=== PATIENT | female | born 1990 | race Caucasian/White ===

== ENCOUNTER 2019-11-03 12:12 | Emergency (ER) | payer OTHER, SELFPAY ==
[2019-11-03 12:14] VITALS: BP 125/81; PULSE 86; RESP 18; TEMP 36.7; O2SAT 100; BMI 42.4
--- NOTE | 2019-11-03 12:49 | RAD_ITS ---
STUDY: X-RAY - RIGHT HAND REASON FOR EXAM: Female, 29 years old. LACERATION TO PALM OF HAND AND DIFFICULTY STRAIGHTENING 5TH DIGIT; BROKEN LIGHTBULB INJURY TECHNIQUE: 3 view(s) of the hand. COMPARISON: None. FINDINGS: Normal radiocarpal articulation. Normal distal radioulnar joint. Normal visualized carpal bones. Normal carpal articulations Normal carpometacarpal articulation of the thumb. Normal second through fifth carpometacarpal joints. Normal metacarpi. Normal metacarpophalangeal joint of the thumb. Normal interphalangeal joint of the thumb. Normal proximal and distal phalanges of the thumb. Normal metacarpophalangeal joints of the second through fifth fingers. Normal proximal and distal interphalangeal joints of the second through fifth fingers. Normal phalanges of the second through fifth fingers. The soft tissue structures are unremarkable. No radiopaque foreign body is seen. RAD/Hand Min 3 Views IMPRESSION: Normal x-ray examination of the hand. Electronically Signed: Lawrence Knox, at 13:06 EDT , Service support ,
--- NOTE | 2019-11-03 14:20 | ED.VISSUMM ---
- ER Visit Summary Date of Service: 11/03/19 Chief Complaint: [Laceration to right hand History of present illness: The patient is a 29-year-old female presents to the emergency department laceration to her right hand that occurred about an hour and a half ago. Patient states that her brother was changing a light bulb and took off the glass cover over the light bulb which broke causing a laceration to her hand. Patient is right-hand dominant. Patient complains of severe pain to the ulnar aspect of the hand. She complains of the small finger being abducted from the rest of the fingers.] Physical Examination: [Right hand-patient has a 1 cm laceration between the fourth and fifth metacarpals mid palmar region. Patient's small finger is abducted away from the rest of the fingers. She is able to flex and extend the digit. She has normal sensation distally.] Test Results: [X-rays of the right hand obtained showed no evidence of foreign body] Emergency Department Course and Treatment: [Case was discussed with orthopedic surgeon who recommended follow-up with hand surgeon. I discussed case with [facility] whose transfer center spoke with Dr. Colón who advised that patient did not need to be transferred for this injury and could follow-up as an outpatient with any hand surgeon and I was given the office phone number where the patient could call for follow-up. Laceration repair-wound sterilely draped and prepped. Anesthetized locally with 1% lidocaine total 2 cc. Wound cleansed with Shur-Clens and irrigated with copious saline. I evaluated the wound but no obvious foreign body was noted within the wound. Using 5-0 nylon a total of 2 single ruptured sutures placed with good wound edge approximation.] Treatment Plan: [Patient will be advised to follow-up with hand surgery within next week. SPECT patient may have nerve injury.] Disposition: [Discharged home in stable condition] Impression: [Right hand laceration 1 cm-simple repair Suspect injury to nerve and hand] This note was generated with [employer] dictation software. It may contain incorrect words, spelling, and punctuation that were not noted in review of the chart prior to signing ED Disposition - Plan for ED Patient: Referrals: Lisandro Harry MD [Primary Care Provider] -
--- NOTE | 2019-11-03 14:24 | ED.DEP ---
ED Disposition - Plan for ED Patient: Instructions: ED Laceration Hand, ED Laceration Hand with Possible Nerve Injury Sutures Glue Referrals: Lisandro Harry MD [Primary Care Provider] - Kane Xiong MD [STAFF PHYSICIAN] - 3-5 Days Additional Instructions: Call Dr. Colón at for follow up within the next week
[2019-11-03] MEDS: Diphth,Pertuss(Acell),Tet Vac 0.5 ML Vial IM (14:32)
== END 2019-11-03 15:04 | disposition home or self-care (01) ==
LOC: ED 12:54
PROVIDERS: Emergency Provider Emergency Medicine; PCP Family Medicine
DX: S61.411A Laceration without foreign body of right hand, initial encounter (principal); W25.XXXA Contact with sharp glass, initial encounter; Y93.9 Activity, unspecified; Y92.89 Other specified places as the place of occurrence of the external cause; Y99.9 Unspecified external cause status; J45.909 Unspecified asthma, uncomplicated
CPT/HCPCS: 12001; 73130; 90715; 99283

== ENCOUNTER 2020-06-30 08:09 | Emergency (ER) | payer OTHER, SELFPAY ==
[2020-06-30 08:13] VITALS: BP 141/92; PULSE 101; RESP 17; TEMP 36.8; O2SAT 98; BMI 18.9
--- NOTE | 2020-06-30 08:29 | CT_ITS ---
STUDY: CT ABDOMEN AND PELVIS WITHOUT CONTRAST REASON FOR EXAM: Female, 30 years old. LT ABD PAIN RADIATING TO LT FLANK X 2 WKS, NO PREV SURG RADIATION DOSAGE (If Supplied By Facility): CTDIvol = ( 6.04 ) mGy, DLP = ( 262.73 ) mGycm TECHNIQUE: Transaxial images were obtained from the dome of the diaphragm to the symphysis pubis without oral contrast, and without intravenous contrast. Sagittal and coronal images were reconstructed. Individualized dose optimization techniques were used for this CT. COMPARISON: None. FINDINGS: Lung bases demonstrate no consolidative process. No pericardial effusion. Liver and spleen demonstrate no acute abnormalities. Pancreas are within normal limits. Adrenal glands appear unremarkable. Fecal loading of colonic loops. Nonobstructive bowel gas pattern. Multiple low-attenuation foci in the kidneys presumably cysts. Bilateral renal nephrolithiasis. Levoconvex lumbar scoliotic curvature seen. Mild bilateral pelviectasis noted. No evidence for ureterolithiasis. Structures demonstrate no acute abnormalities. IMPRESSION: Mild bilateral pelviectasis. Bilateral nephrolithiasis. No evidence for ureterolithiasis. No evidence for obstructive uropathy. Appendix is not definitely visualized however no evidence for acute appendicitis noted. Fecal loading of the rectum Electronically Signed: Michael Lopez MD at 9:53 EST Tel , Service support , CT/Abdomen/Pelvis without Cont
--- NOTE | 2020-06-30 08:36 | ED.DCSUM_ITS ---
- ER Visit Summary Date of Service: 06/30/20 Chief Complaint: [Abdominal pain] History of Present Illness: The patient is a 30 F [presents to the emergency department with complaint of abdominal pain that she states she has had intermittently for the last 2 weeks. Patient apparently did a teleconference re cently with her SITE [employer]AD. Patient also had a urinalysis 5 days ago that was negative. She describes the pain is left lower abdomen radiating into her pelvis. She is currently on her menstrual period. She does not think she is . She denies any urinary symptoms currently. She is had no fever or vomiting. She denies any blood in her stool or black tarry stool. Currently rates her pain a 7 out of 10. Patient has not had a fever. Patient has no medical history. No prior abdominal surgeries.] Patient states her last bowel movement was 2 days ago and it was loose. Physical Examination: [HEENT-PERRLA, EOMI. Cranial nerves II through XII grossly intact. TMs clear. Mucous membranes moist. No adenopathy. Cardiovascular-regular rate and rhythm without murmur or ectopy Lungs-clear to auscultation, chest wall stable without crepitus or subcu emphysema Abdomen-normoactive bowel sounds, soft. Patient has tenderness palpation over left lower quadrant with some mild guarding. There is no rebound, rigidity, or peritoneal signs. No masses palpated. No CVA tenderness on exam. Extremities-intact ?4, normal range of motion, normal pulses, atraumatic] Test Results: [CBC with differential obtained showed a white count 5.0, hemoglobin 15, hematocrit 44, placed 202. Chemistries unremarkable. Urinalysis unremarkable. hCG was negative. CT of the abdomen pelvis without contrast showed nephrolithiasis but no evidence of urolithiasis. Patient had bilateral cysts on her kidneys. Patient had stool loading of the rectum otherwise nothing really significant on the scan.] Emergency Department Course and Treatment: [IV line established. Patient refused pain medication.] Treatment Plan: [Patient will be discharged home with advice to follow-up with her primary care physician within next 3 to 5 days. Patient will be given a bottle of magnesium citrate to take at home. I suspect her symptoms may be related to large amount of stool in the left side of the colon.] Disposition: [Discharged home in stable condition] Impression: [Abdominal pain-etiology uncertain] This note was generated with [employer] dictation software. It may contain incorrect words, spelling, and punctuation that were not noted in review of the chart prior to signing ED Disposition - Plan for ED Patient: Referrals: Lisandro Harry MD [Primary Care Provider] -
[2020-06-30 08:51] LABS: Mucous, Urine 0 SEEN /hpf (<or=2+)
[2020-06-30 08:54] LABS: Absolute Lymphocyte Count 1.62 X10^3/uL (0.83-4.51); Absolute Neutrophil Count 2.9 X10^3/uL (2.0-7.7); Basophil# 0.01 X10^3/uL; Basophil% 0.2 % (0-1); Eosinophil# 0.06 X10^3/uL; Eosinophils% 1.2 % (0-5); Hematocrit 44.3 % (37-47); Lymphocyte # 1.62 X10^3/ul (4.0); Lymphocyte % 32.6 % (19-41); Mean Corp Hgb Conc 33.9 g/dL (32-36); Mean Corpuscular Hgb 33.4 pg (27.0-32.0); Mean Corpuscular Volume 98.7 fL (81-99); Mean Platelet Vol. 11.8 fl (6.2-12.0); Monocyte# 0.36 X10^3/uL; Monocyte% 7.2 % (0-10); NRBC Flagged by Analyzer 0 % (0-5); Neutrophil # 2.91 X10^3/uL (2.7-7.7); Neutrophil % 58.6 % (47-70); Platelet Count 202 K/mm3 (150-450); RBC Distribution Width CV 11.5 % (11.6-14.6); RBC Distribution Width SD 41.9 fl (35.1-43.9); Red Blood Count 4.49 M/mm3 (4.2-5.4)
[2020-06-30 08:55] LABS: Color, Urine Yellow (Yellow); Glucose, Dipstick Normal (Normal); Ketone-Dipstick Negative (Negative); Leukocyte Esterase-Dipstick 25 /ul (Negative); Nitrite-Dipstick Negative (Negative); Occult Blood-Urine 250 /ul (Negative); Protein-Dipstick 15 mg/dl (Negative); Specific Gravity, Urine 1.015 (1.002-1.030); Urine Bilirubin Dipstick Negative (Negative); Urine Clarity Clear (Clear); Urine Urobilinogen Normal (Normal); Urine pH 6.5 (5.0 - 8.0)
[2020-06-30 09:06] LABS: Internal QC Validated? YES +Cl - CLEAR BKGD; Pregnancy, Serum, hCG Quali. NEGATIVE Negative
[2020-06-30 09:09] LABS: Anion Gap 4 (5-15); BUN 12 mg/dL (7-18); BUN/Creat Ratio 15.2 RATIO (10-20); Calcium,Total 9.1 mg/dL (8.5-10.1); Chloride 108 mmol/L (98-107); Creatinine, Serum 0.79 mg/dL (0.55-1.02); EST Glomerular Filtration Rate 92 mL/min (>60); Est Glom Filt Rate - Afr Amer 111 mL/min (>60); Estimated Creatinine Clearance 73.64 ml/min; Glucose 92 mg/dL (74-106); Potassium 3.5 mmol/L (3.5-5.1); Sodium Level 141 mmol/L (136-145)
[2020-06-30 09:15] LABS: Bacteria RARE /hpf (None Seen); Red Blood Cells-Urine 10-25 SEEN /hpf (0-5); Squamous Epithelial Cells - UA 0-5 SEEN /hpf (5-10); White Blood Cells 0-5 SEEN /hpf (0-5)
[2020-06-30 10:53] VITALS: BP 118/80; PULSE 74; RESP 15
--- NOTE | 2020-06-30 10:54 | ED.DEP ---
ED Disposition - Plan for ED Patient: Instructions: ED Constipation (Adult), ED Abdominal Pain Unkn Cause Fem Referrals: Lisandro Harry MD [Primary Care Provider] - 3-5 Days
[2020-06-30] MEDS: Magnesium Citrate 300 ML PO (10:57)
== END 2020-06-30 11:00 | disposition home or self-care (01) ==
LOC: ED 09:06
PROVIDERS: Emergency Provider Emergency Medicine; PCP Family Medicine
DX: R10.32 Left lower quadrant pain (principal); N20.0 Calculus of kidney; N28.89 Other specified disorders of kidney and ureter
CPT/HCPCS: 74176; 80048; 81001; 84703; 85025; 99283; J7030

== ENCOUNTER 2020-10-08 07:21 | Day surgery (SDC) | payer OTHER, SELFPAY ==
[2020-10-03 11:45] LABS: Hematocrit 45.1 % (37-47); Mean Corp Hgb Conc 33.3 g/dL (32-36); Mean Corpuscular Hgb 32.7 pg (27.0-32.0); Mean Corpuscular Volume 98.3 fL (81-99); Mean Platelet Vol. 12.3 fl (6.2-12.0); Platelet Count 197 K/mm3 (150-450); RBC Distribution Width CV 11.6 % (11.6-14.6); RBC Distribution Width SD 41.7 fl (35.1-43.9); Red Blood Count 4.59 M/mm3 (4.2-5.4); White Blood Count 5.5 K/mm3 (4.4-11.0)
[2020-10-03 12:03] LABS: International Normalized Ratio 1.1; Prothrombin Time (Protime)PT. 13.9 SECONDS (11.7-14.9)
[2020-10-03 12:04] LABS: Partial Thromboplast Time 33.8 Seconds (24.1-36.2)
[2020-10-03 12:12] LABS: hCG Titer Quant., Serum < 1 mIU/mL (1-3)
--- NOTE | 2020-10-07 20:43 | PCM.HP.BLA ---
History and Physical Date of Admission: 10/08/20 Surgical History and Physical Amy Denny, a 30 year old female 0 0 0 0 0, presents for Hymenectomy on October 08, 2020 at 8:45. -- Imperforate Hymen -- 30 y.o. G 0 P 0 sexually inactive non-smoker with regular menses and LMP of 07-27-20 lasting her average of 7 days. Reports that she has never been able to use a tampon or have intercourse, due to having her Hymen intact. Tried dilators but they hurt too bad and she did not care for them. Additional comments are: Hymen intact and would like to have removed. MEDICATIONS HISTORY: Patient is also takin. EpiPen 0.3 mg/0.3 mL injection, auto-injector, As Directed prn 2. Ventolin HFA 90 mcg/actuation aerosol inhaler, As Directed prn ALLERGIES: Carrot, Difficulty breathing, [place], Difficulty breathing, Banana and Difficulty breathing Infections - Chicken pox Illnesses - Food Allergies, Asthma Accidents - None Hospitalizations - see surgery Review of Systems: GENERAL - Denies fever, or chills SKIN - Denies skin changes EYES - Denies visual changes EARS - Denies difficulty hearing NOSE - Denies nasal congestion or bleeding MOUTH - Denies sore throat or difficulty swallowing NECK - Denies pain or swelling RESPIRATORY - Denies shortness of breath or wheezing CARDIOVASCULAR - Denies palpitations or chest pain GASTROINTESTINAL - Denies nausea, vomiting, diarrhea, constipation GENITOURINARY - Denies dysuria, frequency of urination, incontinence of urine MUSCULOSKELETAL - Denies joint or muscle pain NEUROLOGICAL - Denies localized numbness or weakness PSYCHIATRIC - Denies depression or anxiety ENDOCRINE - Denies heat or cold intolerance, weight loss or gain HEMATO-IMMUNOLOGIC - Denies excesive bleeding with cuts SOCIAL HISTORY: Alcohol Use - RARELY Smoking - Never Diet - Avoid Food Allergies Lifestyle - moderate stress lifestyle and single Exercise - active Seat Belt Use - always 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 2010 Schneider Teeth Removed PHYSICAL EXAM BP- 120/82 Sitting, Right arm, regular cuff Weight- 98.85425 lbs Height- 60.00 inch BMI:19.30 CONSTITUTIONAL - NAD, well nourished, and well developed SKIN - No rash, lesions, or ulcers NECK - No nodes, no nuchal rigidity and thyroid normal size and texture LUNGS - CTA x2 without wheezes, crackles or rales CARDIAC - Regular rate and rhythm without rubs, murmurs, or gallops ABDOMEN - Without hepatosplenomegaly, distention, masses, rebound, or guarding; normal bowel sounds; no hernias EXTREMITIES - No edema or calf tenderness NEUROLOGICAL - Cranial nerves II-XII grossly intact PSYCHIATRIC - A and O to time, place, person, mood and affect External Genitial Vagina - non-tender without lesions Urethra/Urethral Meatus - non-tender Bladder - non-tender Vagina - pencil diameter opening in hymen ASSESSMENT/PLAN: 1. Imperforate Hymen Failed dilator treatement. Discussed options and will proceed with Exam under Anesthesia and Hymenectomy. Discussed RBAs and all questions answered.
[2020-10-08 07:44] VITALS: BP 127/76; PULSE 81; RESP 16; TEMP 37; O2SAT 100; BMI 19.1
[2020-10-08 07:45] LABS: Internal QC Validated? YES +Cl - CLEAR BKGD; Pregnancy, Urine Negative Negative
[2020-10-08] MEDS: Lactated Ringers 1,000 ML 100 ML IV (07:57)
--- NOTE | 2020-10-08 08:30 | PCM.OPRPT ---
Problems Associated Problem List Diagnoses (1) Imperforate hymen: Report of Operation Date of Procedure: 10/08/20 Pre-Operative Diagnosis: Imperforate Hymen Post-Operative Diagnosis: Imperforate Hymen Surgery/Procedure Performed:: Hymenectomy Description of Surgical Findings:: Hymen with approximately a 1 cm opening. After dividing a pelvic exam was done with normal findings. Surgeon: Randolph Boss Type of Anesthesia: MAC and Topical Anesth Anesthesiologist: John Cantu Specimen's removed: None Estimated Blood Loss (mL): Minimal Fluids Replaced: Crystalloid Description of Procedure: Surgeon: Randolph Boss MD, FACOG Indications: This is a 30 year old patient who has the above diagnosis. The patient has been counseled regarding the risk and indications of this procedure including the possibility of bleeding, infection, and injury to surrounding structures such as bowel bladder. All questions were answered and we consider the patient well-informed. Procedure: The patient was taken to the operating room where after she was given IV sedation, she was placed in the dorsolithotomy position and prepped and draped in the usual sterile fashion. The hymen was identified and after injecting local anesthetic was divided in the posterior aspect to the perineal body. The areas of bleeding were oversewn with 3-0 Rapide suture. Pelvic exam was performed and noted to be normal. Patient tolerated procedure well was taken to recovery room in satisfactory condition sponge instrument and needle counts were all reportedly correct. Estimated blood loss for the case was minimal. Grafts/Implants Used: None Complications None Admit VTE Documentation VTE Present on Admission: Yes VTE Mechan Device Prophylaxis: SCD's
--- NOTE | 2020-10-08 08:36 | PCM.DC ---
Discharge Instructions Diet Discharge Diet: No restrictions Activity Discharge Activity: Return to Normal Activity, May Drive, May Shower and May Take a Tub Bath Additional Activity Instructions:: Ambulate often the next week after surgery. Dressing / Incision Call your doctor if your incision/area has: Continuous Slow Oozing, Sudden Increased Bleeding, Increased Pain/ Swelling, Increased Redness and Foul Smelling Discharge Call your doctor if you observe: Fever of 101 or Higher, Inability to urinate, Inability to have a bowel movement and Using more than one pad per hour Additional Dressing/Incision Instructions:: Nothing in the vagina for 3 weeks please. Use Ibuprophen 800 mg orally every 8 hours as needed for pain. Can also add Tylenol 1000 mg every 8 hours if needed for pain. Drink lots of water. Call if bleeding more than a pad per hour. Steps and walking are OK. Activity is encouraged but do not over do it !! Follow Up Care Please Follow Up With: Randolph Boss MD When: Call [phone] for an appointment in 2-3 weeks Test Results: Test results from this visit will be discussed in further detail at your follow-up appointment, if applicable. Discharge Plan Admission Primary Reason for Your Visit: Hymenectomy Attending Provider: Randolph Boss Primary Care Provider: Lisandro Harry Discharge Orders/Prescriptions Prescriptions: Continued multivitamin Tablet 1 tab PO DAILY RF: 0 magnesium 250 mg Tablet 250 mg PO DAILY RF: 0 epinephrine 0.3 mg/0.3 mL Auto-Injector 0.3 mg IM Q10M PRN (Reason: allergies) RF: 0 albuterol sulfate [Ventolin HFA] 90 mcg/actuation Hfa Aerosol Inhaler 1 inh INHALATION Q6H PRN (Reason: allergies) RF: 0 Probiotic 3 billion cell Capsule 3,000 mmu cells PO DAILY RF: 0 Referrals / Follow Up: Lisandro Harry MD [Primary Care Provider] - Disposition Disposition (needs filled in before D/C Order can be placed): Home, self care
[2020-10-08] MEDS: Ropivacaine 0.5% 30 ML Vial (08:55)
[2020-10-08 09:09] VITALS: BP 127/76; BP 130/77; PULSE 72; RESP 16; TEMP 36.1; O2SAT 100
[2020-10-08 09:10] VITALS: BP 123/83; BP 127/76; PULSE 76; RESP 16; O2SAT 100
[2020-10-08 09:15] VITALS: BP 119/79; BP 127/76; PULSE 80; RESP 16; O2SAT 100
[2020-10-08 09:18] VITALS: BP 126/74; BP 127/76; PULSE 73; RESP 16; TEMP 36.4; O2SAT 100
[2020-10-08 09:57] VITALS: BP 127/76
== END 2020-10-08 10:05 | disposition home or self-care (01) ==
LOC: SDC 07:22 → AC 07:22
PROVIDERS: Anesthesiology; PCP Family Medicine; Referring Provider Obstetrics & Gynecology; Visit Provider Obstetrics & Gynecology
PROC: (CPT 56700; principal; 2020-10-08 08:35)
DX: Q52.3 Imperforate hymen (principal); J45.909 Unspecified asthma, uncomplicated
CPT/HCPCS: 56700; 36415; 81025; 84702; 85027; 85610; 85730; 86850; 86900; 86901; J7120

== ENCOUNTER → 2021-05-02 | Outpatient (CLI) | payer OTHER, SELFPAY ==
[2021-05-08 16:36] LABS: HPV Reflexed? NOT INDICATED
== END | disposition home or self-care (01) ==
LOC: LABSPEC 13:03
PROVIDERS: PCP Family Medicine; Visit Provider Obstetrics & Gynecology
DX: Z12.4 Encounter for screening for malignant neoplasm of cervix (principal)
CPT/HCPCS: 88175; G0145

== ENCOUNTER 2023-02-20 08:57 | Day surgery (SDC) | payer OTHER, SELFPAY ==
--- NOTE | 2023-02-19 09:48 | PCM.HP.BLA ---
History and Physical Date of Admission: 02/20/23 Pre-Op History and Physical ? HPI: The patient is a 32 year old female presenting for pre-operative visit. She is scheduled for Hysteroscopy D&C and polypectomy, for AUB,endometrial polyp on 02/20/23. Procedure discussed along with risks, benefits and complications. Other alternatives discussed for management. Consent form signed? Yes. ? ? PAST MEDICAL HISTORY PAST MEDICAL HISTORY Diagnosis Date ? Migraine headache with aura ? ? NEGATIVE MEDICAL HISTORY ? ? ? PAST SURGICAL HISTORY PAST SURGICAL HISTORY Procedure Laterality Date ? PARTIAL HYMENECTOMY ? 09/19/2020 ? at [facility] ? ? ? CURRENT MEDICATIONS Current Outpatient Medications Medication Sig Dispense Refill ? Inflammatone ([place]) decrease inflammation/pain take two capsules daily, between meals ? 0 ? progesterone micronized (CPD) Compounded Oral Micronized Progesterone SR 75 mg take one cap by mouth at bedtime days 12-28 16 Each 2 ? Norethindrone, Contraceptive, (ORTHO MICRONOR) 0.35 mg tablet Take 1 tablet by mouth once daily. 28 tablet 11 ? Vitex Cordova 60 ct. (Louise Herbs) Take 2 capsules by mouth every morning. ? ? ? HPA Adapt (Integrative Therapeutics) Stress, blood sugar, thyroid/hormones/adrenals/energy Take 2 to 4 capsules daily on an empty stomach ? 0 ? progesterone micronized (PROMETRIUM) 100 mg capsule Take 1 capsule days 14-28 before bed. 14 capsule 2 ? The Whole Probiotic (Tickade) Take 2 capsules by mouth once daily. Treatment 3-6 months ? ? ? ProOmega 120 gels - Lemon ([place] Naturals) 2 caps twice daily with food ? ? ? Meriva-SF (Jeremie) Take 2 capsules by mouth twice daily. ? ? ? TriFortify [place] Gel (Researched Nutritionals) detox/liver support Squeeze tube to fill 1 teaspoon, then swallow twice daily ? 0 ? PhytoMulti with Iron (Metagenics) Take 2 tablets daily with food ? ? ? HPA Adapt (Integrative Therapeutics) Stress, blood sugar, thyroid/hormones/adrenals/energy Take 2 to 4 capsules daily on an empty stomach ? 0 ? E.P.O. Evening [place] Oil (Pure Encapsulations) Hormone balance/cardiovascular/skin 2 capsules twice a day ? 0 ? Iron Chelate (Klaire/Prothera)- low ferritin Take 1 capsule by mouth daily with food. ? 0 ? albuterol HFA (PROVENTIL HFA, VENTOLIN HFA) 90 mcg/actuation inhaler Inhale as instructed. ? ? ? EPINEPHrine (EPIPEN) 0.3 mg/0.3 mL auto-injector EPINEPHrine EPIPEN 2-ED 0.3 MG/0.3ML SOAJ as directed as needed for food allergy reactions EPINEPHRINE [id number] Steven Campos RN 11-08-2019 [facility] [place] [facility] ([id number]) ? ? ? Magnesium Glycinate 120mg (BID) Stress, blood sugar, thyroid/hormones/adrenals/sleep/energy/toxins/muscles/constipation/asthma Work up to 2-3 twice a day. - back off if loose stools ? 0 ? Vitamin D3 5000 U (Pure Encapsulations) Take 1 capsule by mouth daily with food. ? 0 ? No current facility-administered medications for this visit. ? ? ALLERGIES: Food Extracts ? PERSONAL HISTORY: SOCIAL HISTORY Social History ? Tobacco Use ? Smoking status: Never ? Smokeless tobacco: Never Vaping Use ? Vaping Use: Never used Substance Use Topics ? Alcohol use: No ? Drug use: No ? FAMILY HISTORY: FAMILY HISTORY FAMILY HISTORY Problem Relation Age of Onset ? Kidney Disease Father ? ? kidney transplant-@56yrs old ? ? REVIEW OF SYMPTOMS: negative except as noted above PHYSICAL EXAMINATION: ? VITALS: Blood pressure 100/62, weight 98 lb (44.5 kg), last menstrual period 02/14/2023. ? GENERAL: The patient is well nourished, well hydrated in no acute distress. , The patient is oriented to time, place, and person. NECK: Supple. LUNGS: Clear to auscultation bilaterally. no wheezes, rhonchi or rales HEART: Regular rate and rhythm, Normal heart sounds, and No murmurs or gallops ? IMPRESSION: 32-year-old female with abnormal uterine bleeding and endometrial polyp ? PLAN: Hysteroscopy, D&C, polypectomy ? Pt has been counseled on risks/benefits and alternatives of surgery including but not limited to anesthesia, bleeding, infection, uterine perforation with subsequent injury to pelvic structures including bowel, bladder, ureters and vessels. Pt wishes to proceed with surgery at this time. ? I have reviewed and updated past medical and surgical history, medications and allergies Dianna Martines, MD ?9:02 AM Office Visit on 02/19/2023 Office Visit on 02/19/2023 Note shared with patient
[2023-02-20 09:28] VITALS: BP 119/78; PULSE 85; RESP 18; TEMP 37.1; O2SAT 100; BMI 19.1
[2023-02-20] MEDS: Lactated Ringers 1,000 ML 15 ML IV (09:49)
[2023-02-20 10:02] LABS: Internal QC Validated? YES +Cl - CLEAR BKGD; Pregnancy, Urine Negative Negative; Record Kit Lot#,Urine Preg 667200
--- NOTE | 2023-02-20 10:30 | EMB_PTH ---
PATIENT: SATNAM ROGERS LOC: [facility] U#:[id number] AGE/SX: 32/F ROOM: RE02/20/[address]: Dr. Dianna Moncada, MDDOB: 1990 BED: DIS: 02/20/2023 SPEC #: [id number] RECD: 02/20/23 13:08 STATUS: KATIE ANTHONY #: [id number] ADITHYA: 02/20/23 10:[address]: Dianna Moncada DEPT: SURGICAL PATHOLOGY RECD BY: Sharron Schaeffer ENTERED: 02/20/23 13:32 SP TYPE: ENDOM BX/C MAVIS DR: Dr. Lisandro Harry MD Tissues: Endometrium, NOS Procedures: Surgery Specimen Level IV HEADER OPERATION: Hysteroscopy, D & C Symphion PRE-OP DIAGNOSIS: Endometrial polyp with abnormal bleeding TISSUE SUBMITTED: Endometrial curettings and polyp MICROSCOPIC DIAGNOSIS Endometrium, curettings: Polypoid fragments of transition endometrium with minimal disorder and focal glandular breakdown. AM:nima 02/23/2023 MICROSCOPIC DESCRIPTION Slides are reviewed. GROSS DESCRIPTION Received in fixative is one container labeled with the patient's name and designated endometrial curettings and polyp. The specimen consists of multiple irregular and mucoid fragments of light [place]a soft tissue that in aggregate measure 2.2 x 2.0 x 0.1 cm. The specimen is totally submitted in one cassette. / AM:nima 02/20/2023 TC: CPT: 99241
--- NOTE | 2023-02-20 11:12 | DCINST_ITS ---
Discharge Instructions Diet Discharge Diet: No restrictions Activity May resume sexual activity in: 1 week Dressing / Incision Call your doctor if you observe: Fever of 101 or Higher, Inability to urinate, Using more than 1 pad per hour and Uncontrolled pain Follow Up Care Please Follow Up With: Dianna Moncada MD When: 1-2 weeks post OP if you need an appointment please call [phone] Test Results: Test results from this visit will be discussed in further detail at your follow- up appointment, if applicable. Discharge Plan Admission Attending Provider: Dianna Moncada Primary Care Provider: Lisandro Harry Discharge Orders/Prescriptions Prescriptions: No Action multivitamin Tablet 1 tab PO DAILY magnesium 250 mg Tablet 250 mg PO DAILY epinephrine 0.3 mg/0.3 mL Auto-Injector 0.3 mg IM Q10M PRN (Reason: allergies) albuterol sulfate [Ventolin HFA] 90 mcg/actuation Hfa Aerosol Inhaler 1 inh INHALATION Q6H PRN (Reason: allergies) Probiotic 3 billion cell Capsule 3,000 mmu cells PO DAILY ferrous sulfate [iron] 325 mg (65 mg iron) tablet 325 mg PO DAILY cholecalciferol (vitamin D3) [Vitamin D3] 125 mcg (5,000 unit) tablet 125 mcg PO DAILY ascorbic acid (vitamin C) [Vitamin C] 500 mg tablet 500 mg PO DAILY turmeric 400 mg capsule 500 mg PO DAILY quercetin 500 mg capsule 500 mg PO DAILY acetylcysteine [NAC] 600 mg capsule 600 mg PO DAILY Referrals / Follow Up: Lisandro Harry MD [Primary Care Provider] - Disposition Disposition (needs filled in before D/C Order can be placed): Home, Self Care
--- NOTE | 2023-02-20 11:12 | PCM.OPRPT ---
Report of Operation Date of Procedure: 02/20/23 Pre-Operative Diagnosis: AUB, endometrial polyp Post-Operative Diagnosis: same Surgery/Procedure Performed:: Hysteroscopy, D&C, Polypectomy Description of Surgical Findings:: endometrial polyp , tubal ostia visualized. Fluid deficit 550cc Surgeon: Dianna Moncada certified juvenile probation officer: None Type of Anesthesia: MAC Specimen's removed: endometrial curettings and endometrial polyp Estimated Blood Loss (mL): <5cc Fluids Replaced: 500 Description of Procedure: Informed consent was obtained the patient was taken the operating room she was placed in supine position. She was given anesthesia. She was then placed in the [facility] where she was prepped and draped in the normal sterile fashion. At this time the weighted speculum was placed in the posterior fornix of vagina. Single-tooth tenaculum was used to gently grasp the anterior lip the cervix. At this time the uterine cavity was sounded to approximately 7 cm. Gentle dilatation was performed once adequate dilatation of the cervix was achieved the hysteroscope using normal saline as a distention medium was placed. Tubal ostia visualized and endometrial polyp noted arising from posterior aspect of uterus. Symphion resecting device used to obtain endometrial curettings and to perform polypectomy. Tissue will be sent to pathology for evaluation. Tenaculum removed. Good hemostasis. Instrument, lap count correct x 2. Vaginal Sweep was negative. Grafts/Implants Used: none Procedure Start Time: 11:38 Procedure Stop Time: 11:47 Complications none Admit VTE Documentation VTE Present on Admission: Yes VTE Mechan Device Prophylaxis: SCD's VTE Pharm Prophylaxis ordered?: No Reason prophylaxis not ordered:: Procedure Not Indicated
[2023-02-20 12:00] VITALS: BP 119/78; BP 124/83; PULSE 77; RESP 16; TEMP 37.2; O2SAT 100
[2023-02-20 12:05] VITALS: BP 119/78; BP 126/82; PULSE 80; RESP 16; O2SAT 100
[2023-02-20 12:10] VITALS: BP 119/78; BP 121/78; PULSE 72; RESP 16; O2SAT 100
[2023-02-20 12:15] VITALS: BP 119/78; BP 121/82; PULSE 75; RESP 16; TEMP 36.7; O2SAT 100
[2023-02-20 12:43] VITALS: BP 119/78
== END 2023-02-20 12:49 | disposition home or self-care (01) ==
LOC: SDC 09:03 → AC 09:04
PROVIDERS: Anesthesiology; PCP Family Medicine; Referring Provider Obstetrics & Gynecology; Visit Provider Obstetrics & Gynecology
PROC: 0UB98ZZ Excision of Uterus, Via Natural or Artificial Opening Endoscopic (ICD-10-PCS; CPT 58558; principal; 2023-02-20 10:15)
DX: N93.9 Abnormal uterine and vaginal bleeding, unspecified (principal); N84.0 Polyp of corpus uteri; J45.909 Unspecified asthma, uncomplicated
CPT/HCPCS: 58558; 00952; 81025; 88305; J7120; J2405

== ENCOUNTER → 2025-04-10 | Outpatient (CLI) | payer OTHER, SELFPAY ==
--- NOTE | 2025-04-10 11:00 | RAD_ITS ---
PROCEDURE: ABDOMEN SINGLE VIEW 04/10/2025 REASON FOR EXAM: CALCULUS OF KIDNEY TECHNIQUE: Procedure Code: RADABD Modality: DX Procedure: ABDOMEN SINGLE VIEW COMPARISON: CT examination 06/30/2020. FINDINGS: Bowel gas: Unremarkable. Calcifications: 2 small right inferior renal calculi are seen, with probable tiny mid to inferior right renal calculus also noted. Bones: Reverse S shaped thoracolumbar rotoscoliosis is noted. Other: None. RAD/Abdomen Single View IMPRESSION: Right renal calculi are seen. Reading Location: [id number]
== END | disposition home or self-care (01) ==
PROVIDERS: PCP Family Medicine; Referring Provider Nurse Practitioner; Visit Provider Nurse Practitioner
DX: N20.0 Calculus of kidney (principal)
CPT/HCPCS: 74018